=== PATIENT | female | born 1970 | race Caucasian/White ===

== ENCOUNTER → 2024-02-09 14:33 | Outpatient (REF) | payer OTHER, SELFPAY | LOC: WDC 14:33 | PROVIDERS: ATTENDING PHYSICIAN Obstetrics & Gynecology Gynecology; FAMILY PHYSICIAN Internal Medicine | DX: Z12.31 Encounter for screening mammogram for malignant neoplasm of breast (principal) | CPT/HCPCS: 77063; 77067 ==

== ENCOUNTER → 2025-01-10 15:59 | Outpatient (REF) | payer BC, SELFPAY | LOC: MRI 3T 15:59 | PROVIDERS: ATTENDING PHYSICIAN Neurological Surgery; FAMILY PHYSICIAN Internal Medicine | DX: G93.0 Cerebral cysts (principal) | CPT/HCPCS: 70553; A9575 ==

== ENCOUNTER → 2025-02-09 16:59 | Outpatient (REF) | payer BC, SELFPAY | LOC: WDC 16:59 | PROVIDERS: ATTENDING PHYSICIAN Obstetrics & Gynecology Gynecology; FAMILY PHYSICIAN Internal Medicine | DX: Z12.31 Encounter for screening mammogram for malignant neoplasm of breast (principal) | CPT/HCPCS: 77063; 77067 ==